=== PATIENT | female | born 1955 | race Two or more races ===

== ENCOUNTER 2017-09-11 10:22 | Outpatient (CLI) | payer OTHER | END 2017-09-11 10:30 | disposition home or self-care (01) | LOC: MAMO-SONO 10:22 | DX: Z12.31 Encounter for screening mammogram for malignant neoplasm of breast (principal); N60.11 Diffuse cystic mastopathy of right breast ==

== ENCOUNTER 2017-10-18 09:32 | Outpatient (CLI) | payer OTHER | END 2017-10-18 09:46 | disposition home or self-care (01) | LOC: SONOGRAMA 09:32 | DX: N60.11 Diffuse cystic mastopathy of right breast (principal); N60.12 Diffuse cystic mastopathy of left breast; N63.22 Unspecified lump in the left breast, upper inner quadrant ==

== ENCOUNTER 2017-12-16 11:01 | Inpatient (IN) | payer OTHER ==
[~2017-12-16] VITALS: Ht 157.5 cm; Wt 49.9 kg
== END 2017-12-21 14:17 | DRG 583 ==
LOC: O/R 12-20 06:20 → CIR.AMB 12-20 07:00 → RECOVERY 12-20 07:00 → EDSTATUS 12-20 07:00 → CIR.AMB 12-20 11:00 → SURG-SUITE 12-20 14:19 → CIR.AMB 12-20 17:12 → SURG-SUITE 12-21 14:17
PROVIDERS: Plastic Surgery; Surgery
PROC: 07T60ZZ Resection of Left Axillary Lymphatic, Open Approach (ICD-10-PCS; 2017-12-20)
PROC: 0HTU0ZZ Resection of Left Breast, Open Approach (ICD-10-PCS; principal; 2017-12-20 07:00)
PROC: 0HHU0NZ Insertion of Tissue Expander into Left Breast, Open Approach (ICD-10-PCS; 2017-12-20 07:00)
DX: D05.12 Intraductal carcinoma in situ of left breast (principal); Z90.12 Acquired absence of left breast and nipple

== ENCOUNTER 2018-01-22 11:00 | Outpatient (CLI) | payer OTHER | END 2018-01-22 11:06 | disposition home or self-care (01) | LOC: EKG 11:00 | DX: Z90.12 Acquired absence of left breast and nipple (principal) ==

== ENCOUNTER 2018-01-24 05:45 | Day surgery (SDC) | payer OTHER | END 2018-01-24 15:12 | disposition home or self-care (01) | LOC: CIR.AMB 05:45 | DX: N65.1 Disproportion of reconstructed breast (principal); Z90.12 Acquired absence of left breast and nipple; Z85.3 Personal history of malignant neoplasm of breast ==

== ENCOUNTER 2018-03-04 11:13 | Outpatient (CLI) | payer OTHER | END 2018-03-04 11:30 | disposition home or self-care (01) | LOC: SONOGRAMA 11:13 | DX: L76.82 Other postprocedural complications of skin and subcutaneous tissue (principal) ==

== ENCOUNTER 2018-07-23 13:40 | Outpatient (CLI) | payer OTHER | END 2018-07-23 13:45 | disposition home or self-care (01) | LOC: MAMO-SONO 13:40 | DX: D05.12 Intraductal carcinoma in situ of left breast (principal) ==

== ENCOUNTER 2018-09-19 06:11 | Day surgery (SDC) | payer OTHER | END 2018-09-19 12:28 | disposition home or self-care (01) | LOC: CIR.AMB 06:11 | PROVIDERS: Plastic Surgery | PROC: 0HPU0JZ Removal of Synthetic Substitute from Left Breast, Open Approach (ICD-10-PCS; 2018-09-19) | PROC: 0HRU0JZ Replacement of Left Breast with Synthetic Substitute, Open Approach (ICD-10-PCS; 2018-09-19) | PROC: 0H0U0ZZ Alteration of Left Breast, Open Approach (ICD-10-PCS; principal; 2018-09-19 19:15) | DX: N65.1 Disproportion of reconstructed breast (principal); Z90.12 Acquired absence of left breast and nipple ==

== ENCOUNTER 2019-02-06 14:13 | Outpatient (CLI) | payer OTHER | END 2019-02-06 14:23 | disposition home or self-care (01) | LOC: MAMO-SONO 14:13 | DX: N60.11 Diffuse cystic mastopathy of right breast (principal); N60.12 Diffuse cystic mastopathy of left breast; D05.12 Intraductal carcinoma in situ of left breast ==

== ENCOUNTER → 2020-02-16 | Outpatient (CLI) | payer OTHER | END | disposition home or self-care (01) | LOC: OFIC 805 10:15 | PROVIDERS: ATTEND Otolaryngology | DX: C77.8 Secondary and unspecified malignant neoplasm of lymph nodes of multiple regions (principal); R22.1 Localized swelling, mass and lump, neck ==

== ENCOUNTER 2020-02-18 12:00 | Outpatient (CLI) | payer OTHER | END 2020-02-18 12:02 | disposition home or self-care (01) | LOC: SONOGRAMA 12:00 | PROVIDERS: ATTEND Pathology Anatomic Pathology & Clinical Pathology | DX: R22.1 Localized swelling, mass and lump, neck (principal) ==

== ENCOUNTER 2020-02-22 13:37 | Outpatient (CLI) | payer OTHER | END 2020-02-22 14:00 | disposition home or self-care (01) | LOC: MAMO-SONO 13:37 | PROVIDERS: ATTEND Surgery | DX: D05.12 Intraductal carcinoma in situ of left breast (principal); N60.11 Diffuse cystic mastopathy of right breast; N60.12 Diffuse cystic mastopathy of left breast ==

== ENCOUNTER → 2020-03-08 | Outpatient (CLI) | payer OTHER | END | disposition home or self-care (01) | LOC: OFIC 805 13:41 | PROVIDERS: ATTEND Otolaryngology | DX: R22.1 Localized swelling, mass and lump, neck (principal) ==

== ENCOUNTER 2020-03-10 11:47 | Outpatient (CLI) | payer OTHER | END 2020-03-10 11:50 | disposition home or self-care (01) | LOC: SONOGRAMA 11:47 | PROVIDERS: ATTEND Pathology Anatomic Pathology & Clinical Pathology | DX: D37.032 Neoplasm of uncertain behavior of the submandibular salivary glands (principal) ==

== ENCOUNTER → 2020-03-10 | Outpatient (CLI) | payer OTHER | END | disposition home or self-care (01) | LOC: SONOGRAMA 06:11 | PROVIDERS: ATTEND Otolaryngology | DX: R22.1 Localized swelling, mass and lump, neck (principal) ==

== ENCOUNTER → 2020-03-28 | Outpatient (CLI) | payer OTHER | END | disposition home or self-care (01) | LOC: OFIC 805 09:45 | PROVIDERS: ATTEND Otolaryngology | DX: R22.1 Localized swelling, mass and lump, neck (principal); C77.0 Secondary and unspecified malignant neoplasm of lymph nodes of head, face and neck; E04.1 Nontoxic single thyroid nodule ==

== ENCOUNTER 2020-04-07 11:26 | Outpatient (CLI) | payer OTHER | END 2020-04-07 11:27 | disposition home or self-care (01) | LOC: SONOGRAMA 11:26 | PROVIDERS: ATTEND Pathology Anatomic Pathology & Clinical Pathology | DX: E04.1 Nontoxic single thyroid nodule (principal) ==

== ENCOUNTER 2020-04-20 09:47 | Outpatient (CLI) | payer OTHER | END 2020-04-20 10:10 | disposition home or self-care (01) | LOC: OFIC 805 09:47 | PROVIDERS: ATTEND Otolaryngology | DX: E04.1 Nontoxic single thyroid nodule (principal); R22.1 Localized swelling, mass and lump, neck ==

== ENCOUNTER 2020-05-30 10:07 | Outpatient (CLI) | payer OTHER | END 2020-05-30 17:46 | disposition home or self-care (01) | LOC: OFIC 805 10:07 | PROVIDERS: ATTEND Otolaryngology | DX: E04.1 Nontoxic single thyroid nodule (principal) ==

== ENCOUNTER 2020-12-26 10:30 | Outpatient (CLI) | payer OTHER | END 2020-12-26 10:35 | disposition home or self-care (01) | LOC: SONOGRAMA 10:30 | PROVIDERS: ATTEND Otolaryngology | DX: R22.1 Localized swelling, mass and lump, neck (principal) ==

== ENCOUNTER 2021-02-22 10:18 | Outpatient (CLI) | payer OTHER | END 2021-02-22 10:30 | disposition home or self-care (01) | LOC: MAMO-SONO 10:18 | PROVIDERS: ATTEND Surgery | DX: D05.12 Intraductal carcinoma in situ of left breast (principal); N60.11 Diffuse cystic mastopathy of right breast; N60.12 Diffuse cystic mastopathy of left breast ==

== ENCOUNTER 2024-03-02 12:00 | Outpatient (CLI) | payer OTHER | END 2024-03-02 12:21 | disposition home or self-care (01) | LOC: MAMO-SONO 12:00 | PROVIDERS: ATTEND Internal Medicine Cardiovascular Disease | DX: N60.11 Diffuse cystic mastopathy of right breast (principal); N60.12 Diffuse cystic mastopathy of left breast; Z12.31 Encounter for screening mammogram for malignant neoplasm of breast ==

== ENCOUNTER 2024-12-09 08:25 | Outpatient (CLI) | payer OTHER | END 2024-12-09 08:26 | disposition home or self-care (01) | LOC: NUCLEAR 08:25 | PROVIDERS: ATTEND Obstetrics & Gynecology | DX: M81.0 Age-related osteoporosis without current pathological fracture (principal) ==

== ENCOUNTER 2024-12-22 11:10 | Outpatient (CLI) | payer OTHER | END 2024-12-22 11:17 | disposition home or self-care (01) | LOC: RAD 11:10 | PROVIDERS: ATTEND Internal Medicine Rheumatology | DX: M15.8 Other polyosteoarthritis (principal); M54.2 Cervicalgia; M54.59 Other low back pain; M46.1 Sacroiliitis, not elsewhere classified; M47.812 Spondylosis without myelopathy or radiculopathy, cervical region; M47.817 Spondylosis without myelopathy or radiculopathy, lumbosacral region ==

== ENCOUNTER 2025-01-04 08:38 | Outpatient (CLI) | payer OTHER | END 2025-01-04 08:39 | disposition home or self-care (01) | LOC: NUCLEAR 08:38 | PROVIDERS: ATTEND Internal Medicine Rheumatology | DX: M06.4 Inflammatory polyarthropathy (principal); M46.1 Sacroiliitis, not elsewhere classified | CPT/HCPCS: 78315; A9503 ==